=== PATIENT | male | born 1965 | race Caucasian/White ===

== ENCOUNTER 2017-07-04 18:30 | Emergency (ER) | payer MEDICAID, OTHER ==
[~2017-07-04] VITALS: Ht 185.4 cm; Wt 168.2 kg
[2017-07-04] MEDS ORDERED: aspirin 81mg tab.chew PO ONE (18:55)
[2017-07-04] MEDS ORDERED: metoprolol tartrate 50mg tablet PO ONE (19:10)
[2017-07-04 19:26] LABS: BASOPHILS % (AUTO) 0.2 % (0-1); EOSINOPHILS # (AUTO) 0.1 X10'3 (0-0.9); EOSINOPHILS % (AUTO) 1.1 % (0-6); HEMATOCRIT 45.6 % (42.0-52.0); HEMOGLOBIN 15.4 g/dl (14.0-17.9); LYMPHOCYTES # (AUTO) 1.9 X10'3 (1.1-4.8); LYMPHOCYTES % (AUTO) 15.7 % (21-51); MEAN CORPUSCULAR HEMOGLOBIN 27.6 PG (27.0-31.0); MEAN CORPUSCULAR HGB CONC 33.6 % (33.0-36.5); MEAN CORPUSCULAR VOLUME 82.1 FL (78-98); MEAN PLATELET VOLUME 7.7 FL (7.4-10.4); MONOCYTES # (AUTO) 0.7 X10'3 (0-0.9); MONOCYTES % (AUTO) 5.7 % (2-12); NEUTROPHILS # (AUTO) 9.4 X10'3 (1.8-7.7); NEUTROPHILS % (AUTO) 77.3 % (42-75); PLATELET COUNT 312 X10'3 (140-440); RED BLOOD COUNT 5.56 X10'6 (4.70-6.10); RED CELL DISTRIBUTION WIDTH 14.7 % (11.5-14.5); WHITE BLOOD COUNT 12.1 X10'3 (4.5-11.0)
[2017-07-04 19:34] VITALS: BP 201/135
[2017-07-04 19:47] LABS: ALANINE AMINOTRANSFERASE 39 U/L (12-78); ALBUMIN 3.8 G/DL (3.4-5.0); ALKALINE PHOSPHATASE 106 IU/L (46-116); ANION GAP 10 (8-16); ASPARTATE AMINO TRANSFERASE 21 U/L (10-37); BILIRUBIN,TOTAL 0.6 MG/DL (0.1-1.0); BLOOD UREA NITROGEN 19 MG/DL (7-18); BUN/CREATININE RATIO 14.4 (5.4-32.0); CALCIUM 9.1 MG/DL (8.5-10.1); CHLORIDE 106 MMOL/L (99-107); CREATININE 1.32 MG/DL (0.60-1.10); GLUCOSE 119 MG/DL (70-104); MAGNESIUM 1.7 MG/DL (1.5-2.4); POTASSIUM 3.3 MMOL/L (3.5-5.1); SODIUM 141 MMOL/L (135-145); TOTAL CARBON DIOXIDE 24.7 MMOL/L (24-32); TOTAL PROTEIN 7.8 G/DL (6.4-8.2); eGFR 57 ML/MIN
[2017-07-04] MEDS ORDERED: potassium Cl 20 mEq SR tablet PO STA (20:09)
[2017-07-04] MEDS ORDERED: furosemide 10 MG/1 ML 10ml inj IV ONE (20:10)
[2017-07-04] MEDS ORDERED: POTA20TA19 PO (20:12)
[2017-07-04] MEDS ORDERED: FURO80TA87 PO (20:12)
== END 2017-07-04 20:37 ==
LOC: ER 18:32 → EEVIPCON 18:32 → ER 20:37
DX: I11.0 Hypertensive heart disease with heart failure (principal); I50.9 Heart failure, unspecified; E87.5 Hyperkalemia; E78.00 Pure hypercholesterolemia, unspecified; F17.200 Nicotine dependence, unspecified, uncomplicated; Z88.6 Allergy status to analgesic agent
CPT/HCPCS: 36415; 71045; 80053; 83735; 83880; 84484; 85025; 93005; 96374; 99285; J1940

== ENCOUNTER 2018-05-05 10:26 | Day surgery (SDC) | payer MEDICAID ==
[2018-05-05] VITALS (9 sets, daily range): BP systolic 100–165; BP diastolic 54–102
[~2018-05-05] VITALS: Ht 185.4 cm; Wt 168.7 kg
[2018-05-05] MEDS ORDERED: diphenhydrAMINE 25mg capsule PO PRN (10:50)
[2018-05-05] MEDS ORDERED: sod bicarbonate 150mEq in D5W 1,150 ML IV ONE (10:50)
[2018-05-05] MEDS ORDERED: AMLO2.5T2 PO (11:02)
[2018-05-05] MEDS ORDERED: LISI40TA4 PO (11:02)
[2018-05-05] MEDS ORDERED: NABU500T2 PO (11:02)
[2018-05-05] MEDS ORDERED: GABA-532 PO (11:02)
[2018-05-05] MEDS ORDERED: IBUP-1986 PO (11:02)
[2018-05-05] MEDS ORDERED: SPIR25TA5 PO (11:02)
[2018-05-05] MEDS ORDERED: FURO80TA87 PO (11:02)
[2018-05-05] MEDS ORDERED: METO50TA16 PO (11:02)
[2018-05-05 11:08] LABS: BASOPHILS # (AUTO) 0.1 X10'3 (0-0.2); EOSINOPHILS # (AUTO) 0.3 X10'3 (0-0.9); EOSINOPHILS % (AUTO) 2.8 % (0-6); HEMATOCRIT 49.2 % (42.0-52.0); HEMOGLOBIN 16.3 g/dl (14.0-17.9); LYMPHOCYTES # (AUTO) 2.6 X10'3 (1.1-4.8); LYMPHOCYTES % (AUTO) 27.5 % (21-51); MEAN CORPUSCULAR HEMOGLOBIN 26.2 PG (27.0-31.0); MEAN CORPUSCULAR HGB CONC 33.1 % (33.0-36.5); MEAN CORPUSCULAR VOLUME 79.3 FL (78-98); MEAN PLATELET VOLUME 7.7 FL (7.4-10.4); MONOCYTES # (AUTO) 0.7 X10'3 (0-0.9); MONOCYTES % (AUTO) 7.4 % (2-12); NEUTROPHILS # (AUTO) 5.9 X10'3 (1.8-7.7); NEUTROPHILS % (AUTO) 61.3 % (42-75); PLATELET COUNT 287 X10'3 (140-440); WHITE BLOOD COUNT 9.6 X10'3 (4.5-11.0)
[2018-05-05 11:19] LABS: ALBUMIN 3.6 G/DL (3.4-5.0); ANION GAP 9 (8-16); BLOOD UREA NITROGEN 20 MG/DL (7-18); CALCIUM 8.7 MG/DL (8.5-10.1); CHLORIDE 103 MMOL/L (99-107); CREATININE 1.25 MG/DL (0.60-1.10); GLUCOSE 109 MG/DL (70-104); MAGNESIUM 1.9 MG/DL (1.5-2.4); POTASSIUM 4.3 MMOL/L (3.5-5.1); SODIUM 139 MMOL/L (135-145); TOTAL CARBON DIOXIDE 26.9 MMOL/L (24-32); eGFR 60 ML/MIN
[2018-05-05 11:22] LABS: PROTHROMBIN TIME 10.4 SECONDS (9.0-12.0)
[2018-05-05] MEDS ORDERED: verapamil 2.5 mg/ml inj IV ONE (11:24)
[2018-05-05] MEDS ORDERED: nitroGLYCERIN-Tridil 50MG/D5W 250 ML IV ONE (11:24)
[2018-05-05] MEDS ORDERED: iohexol 350 MG/ML 50ML vial IV ONE (11:25)
[2018-05-05] MEDS ORDERED: heparin 1,000unit/ml 10ml vial 10 ML ONE (11:25)
[2018-05-05] MEDS ORDERED: LIDOcaine 1% (10mg/ml)w/preservative injection 20ml MDV ONE (11:25)
[2018-05-05] MEDS ORDERED: iohexol 350MG/ML 100ml bottle IV ONE (11:25)
[2018-05-05] MEDS ORDERED: midazolam 2 mg/2 ml injection ONE ×2 (11:25→12:06)
[2018-05-05] MEDS ORDERED: fentaNYL/PF 50MCG/1 ML 2ML syringe ONE (11:25)
[2018-05-05] MEDS ORDERED: hydrALAZINE 20mg/ml inj. IV ONE (12:11)
== END 2018-05-05 15:45 | disposition home or self-care (01) ==
LOC: SSTAY O 10:26
PROVIDERS: ATTEND Internal Medicine Cardiovascular Disease
DX: I34.0 Nonrheumatic mitral (valve) insufficiency (principal); R94.39 Abnormal result of other cardiovascular function study; I42.8 Other cardiomyopathies; I11.0 Hypertensive heart disease with heart failure; I50.20 Unspecified systolic (congestive) heart failure; J96.01 Acute respiratory failure with hypoxia; E66.01 Morbid (severe) obesity due to excess calories; Z79.1 Long term (current) use of non-steroidal anti-inflammatories (NSAID); Z88.6 Allergy status to analgesic agent; Z68.42 Body mass index [BMI] 45.0-49.9, adult; Z79.891 Long term (current) use of opiate analgesic; Z79.899 Other long term (current) drug therapy
CPT/HCPCS: 36415; 80048; 83735; 85025; 85610; 93005; 93458; 99152; 99153; J0360; J1644; J2001; J2250; J3010; Q9967; A4620; C1769; C1894; J3490

== ENCOUNTER 2019-04-25 14:37 | Inpatient (IN) | payer MEDICAID ==
[~2019-04-25] VITALS: Ht 185.4 cm; Wt 169.4 kg
[~2019-04-25 14:37] MED LIST: AMLO2.5T2 PO; FURO80TA87 PO; GABA-532 PO; IBUP-1986 PO; LISI40TA4 PO; METO50TA16 PO; NABU500T2 PO; SPIR25TA5 PO
[2019-04-25] MEDS ORDERED: normal saline 1000ML IV soln IVB ONE (15:10)
[2019-04-25] MEDS ORDERED: ondansetron/PF 4mg/2ml inj IV ONE (15:10)
[2019-04-25] MEDS ORDERED: morphine 4 MG/ML inj SYRINge IV PRN (15:10)
[2019-04-25 15:37] LABS: BASOPHILS # (AUTO) 0.1 X10'3 (0-0.2); BASOPHILS % (AUTO) 0.6 % (0-1); EOSINOPHILS % (AUTO) 0.2 % (0-6); HEMOGLOBIN 16.8 g/dl (14.0-17.9); LYMPHOCYTES # (AUTO) 1.3 X10'3 (1.1-4.8); MEAN CORPUSCULAR HEMOGLOBIN 27.1 PG (27.0-31.0); MEAN CORPUSCULAR VOLUME 82.2 FL (78-98); MEAN PLATELET VOLUME 7.9 FL (7.4-10.4); MONOCYTES # (AUTO) 0.8 X10'3 (0-0.9); MONOCYTES % (AUTO) 6.3 % (2-12); NEUTROPHILS # (AUTO) 10.8 X10'3 (1.8-7.7); NEUTROPHILS % (AUTO) 82.9 % (42-75); PLATELET COUNT 266 X10'3 (140-440); RED BLOOD COUNT 6.21 X10'6 (4.70-6.10); RED CELL DISTRIBUTION WIDTH 14.6 % (11.5-14.5); WHITE BLOOD COUNT 13.1 X10'3 (4.5-11.0)
[2019-04-25 15:49] LABS: ALANINE AMINOTRANSFERASE 23 U/L (12-78); ALBUMIN 4.2 G/DL (3.4-5.0); ALKALINE PHOSPHATASE 121 IU/L (46-116); ANION GAP 13 (8-16); ASPARTATE AMINO TRANSFERASE 14 U/L (10-37); BILIRUBIN,TOTAL 0.6 MG/DL (0.1-1.0); BLOOD UREA NITROGEN 25 MG/DL (7-18); BUN/CREATININE RATIO 17.7 (5.4-32.0); CHLORIDE 102 MMOL/L (99-107); CREATININE 1.41 MG/DL (0.60-1.10); GLUCOSE 144 MG/DL (70-104); POTASSIUM 3.2 MMOL/L (3.5-5.1); SODIUM 141 MMOL/L (135-145); TOTAL CARBON DIOXIDE 26.2 MMOL/L (24-32); TOTAL PROTEIN 8.6 G/DL (6.4-8.2); eGFR 52 ML/MIN
[2019-04-25 15:53] LABS: LIPASE 569 U/L (73-393); TROPONIN I < 0.04 NG/ML (0.0-0.05)
[2019-04-25] MEDS ORDERED: bisacodyl 10mg suppository rectal RC STA (16:13)
[2019-04-25] MEDS ORDERED: magnesium citrate 296ml oral solution PO ONE (16:15)
[2019-04-25] MEDS ORDERED: magnesium 2GM in 50ml NS 50 ML IV ONE ×2 (17:05→19:05)
[2019-04-25] MEDS ORDERED: diltiazem 5mg/ml 5ml inj. IV ONE (17:05)
[2019-04-25] MEDS ORDERED: potassium Cl 20 mEq SR tablet PO ONE (17:05)
[2019-04-25] MEDS ORDERED: diltiazem-D5W 125mg/125ml 125 ML IV SCH (17:10)
[2019-04-25] MEDS ORDERED: diltiazem-NS 100mg/100ml 100 ML IV SCH (17:15)
[2019-04-25 17:32] LABS: CLARITY,URINE CLEAR (Clear); COLOR,URINE YELLOW (Yellow); GLUCOSE, URINE 100 mg/dl (Neg); KETONES,URINE NEGATIVE (Neg); LEUKOCYTE ESTERASE ,URINE NEGATIVE (Neg); NITRITES, URINE NEGATIVE (Neg); OCCULT BLOOD,URINE SMALL (Neg); PROTEIN,URINE 30 mg/dl (Neg); UROBILINOGEN,URINE 0.2 E.U/dL (0.2-1.0)
[2019-04-25 17:33] LABS: UA COLLECTION TYPE CLN CATCH MIDSTREAM
[2019-04-25 17:37] LABS: BACTERIA,URINE NONE SEEN /HPF (Neg); MUCUS STRANDS NONE SEEN /LPF (Neg); RBC,URINE 0-2 /HPF (0-2); SQUAMOUS EPITHELIAL CELL,UR NONE SEEN /LPF (FEW); WBC,URINE NONE SEEN /HPF (0-4)
[2019-04-25 17:44] LABS: PARTIAL THROMBOPLASTIN TIME 29 SECONDS (22-32)
--- NOTE | 2019-04-25 17:53 | NUR ---
dr rogers at bedside
[2019-04-25] MEDS ORDERED: dronabinol 2.5mg capsule PO STA (17:59)
[2019-04-25] MEDS ORDERED: aspirin 81mg tab.chew PO ONE (18:00)
[2019-04-25] MEDS ORDERED: dronabinol 2.5mg capsule PO PRN (18:05)
[2019-04-25] MEDS ORDERED: metoprolol tartrate 50mg tablet PO STA (18:08)
[2019-04-25 18:14] LABS: MAGNESIUM 1.9 MG/DL (1.5-2.4)
[2019-04-25 18:15] LABS: D-DIMER 1.68 MG/L FEU (0-0.50)
[2019-04-25] MEDS ORDERED: mag hydrox/Alum hydrox/simeth 30ml oral suspension PO PRN (18:15)
[2019-04-25] MEDS ORDERED: ondansetron/PF 4mg/2ml inj IV PRN (18:15)
[2019-04-25] MEDS ORDERED: magnesium 4gm in 100ml NS 100 ML IV PRN (18:15)
[2019-04-25] MEDS ORDERED: ipratropium/albuterol 3ml nebule NEB PRN (18:15)
[2019-04-25] MEDS ORDERED: acetaminophen 325mg tablet PO PRN (18:15)
[2019-04-25] MEDS ORDERED: potassium CL 10mEq/100ml bag 100 ML IV PRN ×2 (18:15)
[2019-04-25] MEDS ORDERED: potassium Cl 20 mEq SR tablet PO PRN ×2 (18:15)
[2019-04-25] MEDS ORDERED: magnesium 2GM in 50ml NS 50 ML IV PRN (18:15)
[2019-04-25] MEDS ORDERED: magnesium hydroxide 30ml (MOM) UD suspension PO PRN (18:15)
[2019-04-25] MEDS: methylnaltrexone br 12mg/0.6ml inj***SubQ only SQ SCH (18:34)
[2019-04-25] MEDS ORDERED: hydrALAZINE 20mg/ml inj. IV PRN (18:35)
--- NOTE | 2019-04-25 18:49 | NUR ---
PAGED DR RAMOS
--- NOTE | 2019-04-25 18:59 | NUR ---
SPOKE TO DR RAMOS ON PHONE: MANY TELEPHONE ORDERS RECEIVED, SEE ORDERS
[2019-04-25] MEDS ORDERED: potassium Cl 20 mEq SR tablet PO STA (19:00)
--- NOTE | 2019-04-25 19:20 | NUR ---
SPOKE TO PHARMACIST MAGED REGARDING DOSAGE FOR PE FOR ELIQUIS: DOSAGE FOR PE IS 10 MG BID FOR ONE WEEK THEN 5 MG BID ONGOING PHARMACIST WILL ORDER POTASSIUM REPLACEMENT TO 4.0 AND MAGNESIUM REPLACEMENT TO 2.0 ORDERED VQ SCAN, ULTRASOUND OF LEGS, DC'D SCDS, LIPASE IN AM AND NOW DOSES OF MAGNESIUM AND POTASSIUM
[2019-04-25] MEDS: K and/or MAG REPLACEMENT MC SCH (20:00)
--- NOTE | 2019-04-25 20:00 | NUR ---
CRUZ [phone]; CAN NOT FIND HIS BAG OF MEDICATIONS AT HOME AND PATIENT CAN NOT REMEMBER HIS MEDICATIONS, UNABLE TO COMPLETE MEDICATION RECONCILIATION ATTEMPTED TO CALL REPORT RN AND BENEFIT AUTHORIZER UNAVAILABLE
--- NOTE | 2019-04-25 20:18 | NUR ---
HEADER SETUP OPERATOR BOBBY AWARE THAT MAG CITRATE AND DUCOLAX SUPPOSITORY NOT GIVEN DUE TO ROOM IS TOO SMALL FOR A COMMODE AND PATIENT IS TOO FAR FROM THE BATHROOM
[2019-04-25] MEDS: apixaban 5mg tablet PO SCH (20:34)
[2019-04-25] MEDS: metoprolol tartrate 50mg tablet PO SCH (20:34)
[2019-04-25] MEDS: furosemide 10 MG/1 ML 10ml inj IV SCH (20:34)
[2019-04-25 21:00] VITALS: BP 135/103
--- NOTE | 2019-04-25 21:00 | NUR ---
pt arrived to the PCU Unit from the ER via a gurney. pt ambulated from gurney to the hospital bed. pt is alert and oriented x4, on a cardizem GTT running at 5. will continue to monitor pt
[2019-04-25] MEDS: diltiazem-NS 100mg/100ml 100 ML IV SCH (21:01)
[2019-04-25 22:00] VITALS: BP 136/109
[2019-04-25 23:00] VITALS: BP 141/105
[2019-04-26] VITALS (9 sets, daily range): BP systolic 111–150; BP diastolic 52–124
[2019-04-26] MEDS: diltiazem-NS 100mg/100ml 100 ML IV SCH (02:36)
[2019-04-26 06:14] LABS: BASOPHILS % (AUTO) 0.3 % (0-1); EOSINOPHILS % (AUTO) 0.3 % (0-6); HEMATOCRIT 46.3 % (42.0-52.0); HEMOGLOBIN 15.4 g/dl (14.0-17.9); LYMPHOCYTES # (AUTO) 2.5 X10'3 (1.1-4.8); LYMPHOCYTES % (AUTO) 20.5 % (21-51); MEAN CORPUSCULAR HEMOGLOBIN 27.6 PG (27.0-31.0); MEAN CORPUSCULAR HGB CONC 33.3 g/dL (33.0-36.5); MEAN CORPUSCULAR VOLUME 82.8 FL (78-98); MEAN PLATELET VOLUME 8.3 FL (7.4-10.4); MONOCYTES # (AUTO) 0.9 X10'3 (0-0.9); MONOCYTES % (AUTO) 7.2 % (2-12); NEUTROPHILS # (AUTO) 8.8 X10'3 (1.8-7.7); NEUTROPHILS % (AUTO) 71.7 % (42-75); PLATELET COUNT 258 X10'3 (140-440); RED BLOOD COUNT 5.59 X10'6 (4.70-6.10); RED CELL DISTRIBUTION WIDTH 14.7 % (11.5-14.5); WHITE BLOOD COUNT 12.3 X10'3 (4.5-11.0)
--- NOTE | 2019-04-26 06:20 | NUR ---
Problems reprioritized. Patient report given, questions answered & plan of care reviewed with Regina LEGGETT.
--- NOTE | 2019-04-26 06:30 | NUR ---
Patient in room PCU 3017. I have received report from Karen LEGGETT and had the opportunity to ask questions and assume patient care. Patient asleep in bed and resting comfortably. In no acute distress. Will continue to monitor.
[2019-04-26 06:31] LABS: ALANINE AMINOTRANSFERASE 24 U/L (12-78); ALBUMIN 3.5 G/DL (3.4-5.0); ALBUMIN/GLOBULIN RATIO 0.9 (1.1-1.5); ALKALINE PHOSPHATASE 106 IU/L (46-116); ANION GAP 9 (8-16); ASPARTATE AMINO TRANSFERASE 13 U/L (10-37); BILIRUBIN,TOTAL 0.6 MG/DL (0.1-1.0); BLOOD UREA NITROGEN 17 MG/DL (7-18); BUN/CREATININE RATIO 14.4 (5.4-32.0); CALCIUM 8.6 MG/DL (8.5-10.1); CHLORIDE 104 MMOL/L (99-107); CREATININE 1.18 MG/DL (0.60-1.10); GLUCOSE 106 MG/DL (70-104); POTASSIUM 3.9 MMOL/L (3.5-5.1); SODIUM 141 MMOL/L (135-145); TOTAL PROTEIN 7.6 G/DL (6.4-8.2); eGFR 64 ML/MIN
[2019-04-26 06:34] LABS: CHOL/HDL RATIO 3.7 (0.00-4.99); CHOLESTEROL 150 MG/DL (0-200); HDL CHOLESTEROL 41 MG/DL (35-60); LDL CHOLESTEROL 95 MG/DL (50-100); LIPASE 1246 U/L (73-393); MAGNESIUM 2.5 MG/DL (1.5-2.4); TRIGLYCERIDES 85 MG/DL (20-135)
[2019-04-26] MEDS ORDERED: BUPR1FIL5 SL (06:55)
[2019-04-26] MEDS ORDERED: METO100T14 PO (07:01)
[2019-04-26] MEDS ORDERED: LEVO50TA8 PO (07:01)
[2019-04-26] MEDS: apixaban 5mg tablet PO SCH ×2 (07:49→19:54)
[2019-04-26] MEDS: furosemide 10 MG/1 ML 10ml inj IV SCH ×2 (07:49→19:54)
[2019-04-26] MEDS: metoprolol tartrate 50mg tablet PO SCH ×2 (07:50→19:54)
[2019-04-26] MEDS: K and/or MAG REPLACEMENT MC SCH ×2 (08:00→19:08)
--- NOTE | 2019-04-26 11:04 | NUR ---
Paged Dr. Owusu: PAGER ID: [phone] MESSAGE: RE: Dalton Nettles [phone]. Pharmacy only has 8mg of suboxone in stock. Please advise what you would like ordered.. Thank you. Regina [phone]
--- NOTE | 2019-04-26 11:09 | NUR ---
New order from Dr. Owusu: Discontinue IV morphine. Suboxone 8 mg BID.
[2019-04-26] MEDS ORDERED: digoxin 250mcg/ml 2ml ampule IV ONE (11:50)
[2019-04-26] MEDS: buprenorphine/naloxone 8MG-2MG SUBlingual film SL SCH ×2 (12:28→19:54)
[2019-04-26] MEDS: dronabinol 2.5mg capsule PO PRN (13:28)
--- NOTE | 2019-04-26 16:42 | NUR ---
New order from Dr. Owusu: Bilateral lower extremity venous ultrasound
--- NOTE | 2019-04-26 17:54 | NUR ---
PAGER ID: [phone] MESSAGE: RE: Dalton Nettles [id number]. Is OK to order heart healthy diet or still clear liquid? Regina [phone]
--- NOTE | 2019-04-26 18:27 | NUR ---
Patient in room PCU 3017. I have received report from Regina LEGGETT and had the opportunity to ask questions and assume patient care.
--- NOTE | 2019-04-26 18:48 | NUR ---
Problems reprioritized. Patient report given, questions answered & plan of care reviewed with Marilia LEGGETT. Patient stable at transfer of care.
[2019-04-27 02:00] VITALS: BP 144/96
[2019-04-27 06:15] LABS: BASOPHILS # (AUTO) 0.1 X10'3 (0-0.2); EOSINOPHILS # (AUTO) 0.2 X10'3 (0-0.9); EOSINOPHILS % (AUTO) 2.8 % (0-6); HEMATOCRIT 41.5 % (42.0-52.0); HEMOGLOBIN 14.2 g/dl (14.0-17.9); LYMPHOCYTES # (AUTO) 2.4 X10'3 (1.1-4.8); MEAN CORPUSCULAR HEMOGLOBIN 28.3 PG (27.0-31.0); MEAN CORPUSCULAR HGB CONC 34.2 g/dL (33.0-36.5); MEAN CORPUSCULAR VOLUME 82.6 FL (78-98); MEAN PLATELET VOLUME 8.2 FL (7.4-10.4); MONOCYTES # (AUTO) 0.7 X10'3 (0-0.9); MONOCYTES % (AUTO) 9.6 % (2-12); NEUTROPHILS # (AUTO) 4.3 X10'3 (1.8-7.7); NEUTROPHILS % (AUTO) 55.6 % (42-75); PLATELET COUNT 229 X10'3 (140-440); RED BLOOD COUNT 5.03 X10'6 (4.70-6.10); RED CELL DISTRIBUTION WIDTH 14.5 % (11.5-14.5); WHITE BLOOD COUNT 7.8 X10'3 (4.5-11.0)
--- NOTE | 2019-04-27 06:16 | NUR ---
Problems reprioritized. Patient report given, questions answered & plan of care reviewed with Regina LEGGETT.
--- NOTE | 2019-04-27 06:20 | NUR ---
Patient in room PCU 3017. I have received report from Marilia LEGGETT and had the opportunity to ask questions and assume patient care. Patient asleep in bed and resting comfortably. In no acute distress.
[2019-04-27 06:42] LABS: ALANINE AMINOTRANSFERASE 20 U/L (12-78); ALBUMIN 3.2 G/DL (3.4-5.0); ALBUMIN/GLOBULIN RATIO 0.9 (1.1-1.5); ALKALINE PHOSPHATASE 94 IU/L (46-116); ANION GAP 8 (8-16); ASPARTATE AMINO TRANSFERASE 17 U/L (10-37); BILIRUBIN,TOTAL 0.4 MG/DL (0.1-1.0); BLOOD UREA NITROGEN 21 MG/DL (7-18); BUN/CREATININE RATIO 17.4 (5.4-32.0); CALCIUM 8.4 MG/DL (8.5-10.1); CHLORIDE 104 MMOL/L (99-107); CREATININE 1.21 MG/DL (0.60-1.10); GLUCOSE 101 MG/DL (70-104); LIPASE 317 U/L (73-393); MAGNESIUM 2.2 MG/DL (1.5-2.4); SODIUM 140 MMOL/L (135-145); TOTAL CARBON DIOXIDE 28.5 MMOL/L (24-32); TOTAL PROTEIN 6.7 G/DL (6.4-8.2); eGFR 62 ML/MIN
[2019-04-27 06:46] LABS: POTASSIUM 3.9 MMOL/L (3.5-5.1)
[2019-04-27 07:00] VITALS: BP 152/73
[2019-04-27] MEDS ORDERED: digoxin 250mcg (0.25mg) tablet PO SCH (08:00)
[2019-04-27] MEDS: K and/or MAG REPLACEMENT MC SCH (08:00)
[2019-04-27] MEDS: methylnaltrexone br 12mg/0.6ml inj***SubQ only SQ SCH (08:00)
[2019-04-27] MEDS: furosemide 10 MG/1 ML 10ml inj IV SCH (08:23)
[2019-04-27] MEDS: metoprolol tartrate 50mg tablet PO SCH (08:24)
[2019-04-27] MEDS: apixaban 5mg tablet PO SCH (08:24)
[2019-04-27] MEDS: buprenorphine/naloxone 8MG-2MG SUBlingual film SL SCH (08:24)
[2019-04-27] MEDS: dronabinol 2.5mg capsule PO PRN (08:54)
[2019-04-27] MEDS ORDERED: APIX5TAB3 PO (10:37)
[2019-04-27 11:00] VITALS: BP 130/98
--- NOTE | 2019-04-27 12:57 | NUR ---
Patient stable for discharge per MD orders. All discharge instructions reviewed with patient and all questions answered. New prescription sent electronically to [facility]. Patient educated on signs and symptoms of bleeding. Patient to follow up with Dr. Bai in 2 weeks. PIV discontinued - cannula intact. Telemetry monitoring discontinued. All patient belongings packed up and sent with patient in private vehicle to home. Patient walked to [facility], accompanied by primary RN.
[2019-05-02] MEDS ORDERED: apixaban 5mg tablet PO SCH (09:00)
== END 2019-04-27 12:57 | disposition home or self-care (01) | DRG 201 ==
LOC: ER 14:37 → ED HOLD 18:20 → EDBEDREQ 18:54 → PCU 3S 20:50
PROVIDERS: ADMIT Family Medicine; ATTEND Family Medicine
DX: I48.91 Unspecified atrial fibrillation (principal); I13.0 Hypertensive heart and chronic kidney disease with heart failure and stage 1 through stage 4 chronic kidney disease, or unspecified chronic kidney disease; I50.22 Chronic systolic (congestive) heart failure; I49.9 Cardiac arrhythmia, unspecified; K59.00 Constipation, unspecified; E78.00 Pure hypercholesterolemia, unspecified; G89.29 Other chronic pain; M54.5 Low back pain; F17.210 Nicotine dependence, cigarettes, uncomplicated; E78.5 Hyperlipidemia, unspecified; N18.9 Chronic kidney disease, unspecified; E87.6 Hypokalemia; F11.90 Opioid use, unspecified, uncomplicated; F12.90 Cannabis use, unspecified, uncomplicated; Z88.8 Allergy status to other drugs, medicaments and biological substances; Z79.01 Long term (current) use of anticoagulants; Z79.899 Other long term (current) drug therapy
CPT/HCPCS: 36415; 74018; 78582; 80053; 80061; 81001; 83605; 83690; 83735; 83880; 84484; 85025; 85379; 85610; 85730; 87081; 93306; 93970; 94760; 97116; 97161; 97530; A9539; A9540; G0378; J1160; J1940; J2212; J2270; J2405; J3475; J3490; Q0167

== ENCOUNTER 2019-06-01 08:55 | Inpatient (IN) | payer MEDICAID ==
[~2019-06-01] VITALS: Ht 185.4 cm; Wt 180.4 kg
[~2019-06-01 08:55] MED LIST changes: -AMLO2.5T2 PO; +APIX5TAB3 PO; +BUPR1FIL5 SL; -GABA-532 PO; -IBUP-1986 PO; +LEVO50TA8 PO; +METO100T14 PO; -METO50TA16 PO; -NABU500T2 PO
[2019-06-01 10:59] LABS: BASOPHILS # (AUTO) 0.1 X10'3 (0-0.2); BASOPHILS % (AUTO) 0.6 % (0-1); EOSINOPHILS % (AUTO) 0.1 % (0-6); HEMATOCRIT 42.6 % (42.0-52.0); HEMOGLOBIN 14.1 g/dl (14.0-17.9); LYMPHOCYTES # (AUTO) 1.4 X10'3 (1.1-4.8); LYMPHOCYTES % (AUTO) 10.2 % (21-51); MEAN CORPUSCULAR HEMOGLOBIN 27.2 PG (27.0-31.0); MEAN CORPUSCULAR HGB CONC 33.2 g/dL (33.0-36.5); MONOCYTES % (AUTO) 7.4 % (2-12); NEUTROPHILS # (AUTO) 11.3 X10'3 (1.8-7.7); NEUTROPHILS % (AUTO) 81.7 % (42-75); PLATELET COUNT 275 X10'3 (140-440); RED CELL DISTRIBUTION WIDTH 14.5 % (11.5-14.5); WHITE BLOOD COUNT 13.8 X10'3 (4.5-11.0)
[2019-06-01 11:15] LABS: ALANINE AMINOTRANSFERASE 23 U/L (12-78); ALBUMIN 3.5 G/DL (3.4-5.0); ALBUMIN/GLOBULIN RATIO 0.8 (1.1-1.5); ALKALINE PHOSPHATASE 97 IU/L (46-116); ANION GAP 10 (8-16); ASPARTATE AMINO TRANSFERASE 16 U/L (10-37); BILIRUBIN,TOTAL 1.6 MG/DL (0.1-1.0); BLOOD UREA NITROGEN 13 MG/DL (7-18); CALCIUM 9.3 MG/DL (8.5-10.1); CHLORIDE 103 MMOL/L (99-107); CREATININE 1.18 MG/DL (0.60-1.10); GLUCOSE 147 MG/DL (70-104); POTASSIUM 3.2 MMOL/L (3.5-5.1); SODIUM 140 MMOL/L (135-145); TOTAL CARBON DIOXIDE 27.3 MMOL/L (24-32); TOTAL PROTEIN 7.7 G/DL (6.4-8.2); eGFR 64 ML/MIN
[2019-06-01 11:23] LABS: MAGNESIUM 1.7 MG/DL (1.5-2.4)
[2019-06-01] MEDS ORDERED: ipratropium/albuterol 3ml nebule NEB ONE (12:05)
[2019-06-01] MEDS ORDERED: furosemide 40mg/4ml inj IV ONE (12:05)
[2019-06-01] MEDS ORDERED: diltiazem 5mg/ml 5ml inj. IV ONE (12:10)
[2019-06-01] MEDS ORDERED: FURO80TA3 PO (12:46)
[2019-06-01] MEDS ORDERED: POTA8CAP20 PO (12:46)
[2019-06-01] MEDS ORDERED: ALBU18HF2 IH (12:46)
[2019-06-01] MEDS ORDERED: AMLO10TA13 PO (12:46)
[2019-06-01] MEDS ORDERED: ONDA4TAB12 PO (12:46)
[2019-06-01] MEDS ORDERED: DOCU-267 PO (12:46)
[2019-06-01] MEDS ORDERED: APIX5TAB3 PO (12:51)
[2019-06-01] MEDS ORDERED: diltiazem-D5W 125mg/125ml 125 ML IV PRN (13:02)
[2019-06-01] MEDS: diltiazem-NS 100mg/100ml 100 ML IV PRN ×2 (13:34→20:53)
[2019-06-01] MEDS ORDERED: acetaminophen 325mg tablet PO PRN ×2 (13:35)
[2019-06-01] MEDS ORDERED: magnesium 2GM in 50ml NS 50 ML IV PRN (13:35)
[2019-06-01] MEDS ORDERED: ondansetron/PF 4mg/2ml inj IV PRN (13:35)
[2019-06-01] MEDS ORDERED: potassium CL 10mEq/100ml bag 100 ML IV PRN ×2 (13:35)
[2019-06-01] MEDS ORDERED: ipratropium/albuterol 3ml nebule NEB PRN ×2 (13:35)
[2019-06-01] MEDS ORDERED: magnesium 4gm in 100ml NS 100 ML IV PRN (13:35)
[2019-06-01] MEDS ORDERED: magnesium Cl slow-release 64mg tablet PO PRN (13:35)
[2019-06-01] MEDS ORDERED: mag hydrox/Alum hydrox/simeth 30ml oral suspension PO PRN (13:35)
[2019-06-01] MEDS ORDERED: potassium Cl 20 mEq SR tablet PO PRN (13:35)
--- NOTE | 2019-06-01 14:15 | NUR ---
DILT DRIP INCREASED TO 10
[2019-06-01] MEDS ORDERED: ibuprofen tablet 400 MG TABLET PO ONE (14:55)
--- NOTE | 2019-06-01 16:14 | NUR ---
INCREASED DILT TO 15
--- NOTE | 2019-06-01 17:47 | NUR ---
Patient coming to RM 308. I have received report from OLEKSANDR Lozano and had the opportunity to ask questions and assume patient care.
--- NOTE | 2019-06-01 18:11 | NUR ---
Problems reprioritized. Patient report given, questions answered & plan of care reviewed with OLEKSANDR Silva.
--- NOTE | 2019-06-01 18:11 | NUR ---
Patient in room MED 308. I have received report from OLEKSANDR Rea and had the opportunity to ask questions and assume patient care.
[2019-06-01] MEDS ORDERED: docusate sod 100mg capsule PO PRN (19:30)
[2019-06-01] MEDS: K and/or MAG REPLACEMENT MC SCH (20:00)
[2019-06-01] MEDS: apixaban 5mg tablet PO SCH (20:12)
[2019-06-01] MEDS: metoprolol tartrate 50mg tablet PO SCH (20:13)
[2019-06-01] MEDS: furosemide 40mg/4ml inj IV SCH (20:14)
--- NOTE | 2019-06-01 20:36 | NUR ---
Paged Dr. Bee PAGER ID: [phone] MESSAGE: Nettles Dalton in room # 308 came from ER on Cardizem drip @ 15mls/hr; however, order in [facility] is Cardizem at 5 mls/hr. Pt's VS: Temp=97.7; BP 134/86; RR 26; SPO2: 94; HR: 98 Marianne
[2019-06-01] MEDS: potassium Cl 20 mEq SR tablet PO PRN (21:31)
[2019-06-01] MEDS: temazepam 15mg capsule PO PRN (21:31)
[2019-06-02] VITALS (10 sets, daily range): BP systolic 104–146; BP diastolic 74–104
--- NOTE | 2019-06-02 00:21 | NUR ---
Paged Dr. Guzman PAGER ID: [phone] MESSAGE: Dalton Nettles in room 308. Pt's HR is (60-90) , BP 117/90 . Cardizem is running at 15mg/hr. Can we titrate down? Pls advise Thank you- Semaj
--- NOTE | 2019-06-02 01:33 | NUR ---
DART: MRSA [id number]
--- NOTE | 2019-06-02 02:50 | NUR ---
MD Notified Patient heart rate between 60 and 100. Bp 146/104. Cardizem running at 15mg/Hr. received orders to titrate to 10mg/hr.
[2019-06-02] MEDS: diltiazem-NS 100mg/100ml 100 ML IV PRN (04:02)
[2019-06-02] MEDS: HYDROcodone/acetaminophen 5mg/325mg tablet PO PRN ×4 (04:33→21:15)
[2019-06-02 06:07] LABS: BASOPHILS # (AUTO) 0.1 X10'3 (0-0.2); BASOPHILS % (AUTO) 0.7 % (0-1); EOSINOPHILS # (AUTO) 0.2 X10'3 (0-0.9); EOSINOPHILS % (AUTO) 1.3 % (0-6); HEMATOCRIT 41.3 % (42.0-52.0); HEMOGLOBIN 13.4 g/dl (14.0-17.9); LYMPHOCYTES # (AUTO) 1.8 X10'3 (1.1-4.8); LYMPHOCYTES % (AUTO) 13.7 % (21-51); MEAN CORPUSCULAR HEMOGLOBIN 27.1 PG (27.0-31.0); MEAN CORPUSCULAR HGB CONC 32.5 g/dL (33.0-36.5); MEAN CORPUSCULAR VOLUME 83.5 FL (78-98); MEAN PLATELET VOLUME 8.2 FL (7.4-10.4); MONOCYTES # (AUTO) 1.2 X10'3 (0-0.9); MONOCYTES % (AUTO) 9.1 % (2-12); NEUTROPHILS # (AUTO) 9.8 X10'3 (1.8-7.7); NEUTROPHILS % (AUTO) 75.2 % (42-75); PLATELET COUNT 248 X10'3 (140-440); RED BLOOD COUNT 4.94 X10'6 (4.70-6.10); RED CELL DISTRIBUTION WIDTH 14.8 % (11.5-14.5); WHITE BLOOD COUNT 13.1 X10'3 (4.5-11.0)
[2019-06-02 06:25] LABS: ALBUMIN 3.2 G/DL (3.4-5.0); ANION GAP 10 (8-16); BLOOD UREA NITROGEN 19 MG/DL (7-18); BUN/CREATININE RATIO 13.4 (5.4-32.0); CALCIUM 8.9 MG/DL (8.5-10.1); CHLORIDE 104 MMOL/L (99-107); CREATININE 1.42 MG/DL (0.60-1.10); GLUCOSE 126 MG/DL (70-104); MAGNESIUM 1.8 MG/DL (1.5-2.4); POTASSIUM 3.3 MMOL/L (3.5-5.1); SODIUM 141 MMOL/L (135-145); TOTAL CARBON DIOXIDE 27.4 MMOL/L (24-32); eGFR 52 ML/MIN
--- NOTE | 2019-06-02 06:27 | NUR ---
Problems reprioritized. Patient report given, questions answered & plan of care reviewed with OLEKSANDR Suresh. Patient stable at shift change
--- NOTE | 2019-06-02 06:32 | NUR ---
Orientee documentation: I have reviewed and agree with interventions, assessments performed and documented by OLEKSANDR Cha.
--- NOTE | 2019-06-02 06:34 | NUR ---
Patient in room MED 308. I have received report from OLEKSANDR Cha and OLEKSANDR Silva and had the opportunity to ask questions and assume patient care.
[2019-06-02] MEDS: furosemide 40mg/4ml inj IV SCH ×2 (07:44→19:38)
[2019-06-02] MEDS: potassium Cl 20 mEq SR tablet PO PRN ×2 (07:45→13:16)
[2019-06-02] MEDS: levoTHYROXINE 25mcg tablet PO SCH (07:46)
[2019-06-02] MEDS: apixaban 5mg tablet PO SCH ×2 (07:46→19:36)
[2019-06-02] MEDS: lisinopril 20mg tablet PO SCH (07:47)
[2019-06-02] MEDS: metoprolol tartrate 50mg tablet PO SCH ×2 (07:48→19:38)
[2019-06-02] MEDS: amLODIPine 5mg tablet PO SCH (07:48)
[2019-06-02] MEDS ORDERED: enoxaparin 40mg/0.4ml syringe SUBCUT SCH (08:00)
[2019-06-02] MEDS: K and/or MAG REPLACEMENT MC SCH ×2 (08:00→20:00)
--- NOTE | 2019-06-02 18:31 | NUR ---
Problems reprioritized. Patient report given, questions answered & plan of care reviewed with OLEKSANDR East.
--- NOTE | 2019-06-02 18:42 | NUR ---
Problems reprioritized. Patient report given, questions answered & plan of care reviewed with Gill LEGGETT .
--- NOTE | 2019-06-02 20:51 | NUR ---
Dr. Sanchez called with orders to d/c cardizem gtt and lovenox.
[2019-06-02] MEDS: temazepam 15mg capsule PO PRN (21:15)
[2019-06-02] MEDS: amox tr/potassium clavulanate 500mg/125mg TAB PO SCH (22:36)
[2019-06-03 02:00] VITALS: BP 117/65
[2019-06-03] MEDS: HYDROcodone/acetaminophen 5mg/325mg tablet PO PRN ×4 (02:37→20:35)
[2019-06-03 06:00] VITALS: BP 142/92
--- NOTE | 2019-06-03 06:00 | NUR ---
Patient in room MED 308. I have received report from OLEKSANDR Dna and had the opportunity to ask questions and assume patient care.
[2019-06-03 06:12] LABS: BASOPHILS # (AUTO) 0.1 X10'3 (0-0.2); BASOPHILS % (AUTO) 1.2 % (0-1); EOSINOPHILS # (AUTO) 0.4 X10'3 (0-0.9); EOSINOPHILS % (AUTO) 3.7 % (0-6); HEMATOCRIT 39.6 % (42.0-52.0); LYMPHOCYTES # (AUTO) 2.1 X10'3 (1.1-4.8); LYMPHOCYTES % (AUTO) 19.4 % (21-51); MEAN CORPUSCULAR HEMOGLOBIN 27.3 PG (27.0-31.0); MEAN CORPUSCULAR HGB CONC 32.8 g/dL (33.0-36.5); MEAN CORPUSCULAR VOLUME 83.3 FL (78-98); MEAN PLATELET VOLUME 8.3 FL (7.4-10.4); MONOCYTES # (AUTO) 0.9 X10'3 (0-0.9); MONOCYTES % (AUTO) 8.5 % (2-12); NEUTROPHILS # (AUTO) 7.4 X10'3 (1.8-7.7); NEUTROPHILS % (AUTO) 67.2 % (42-75); PLATELET COUNT 247 X10'3 (140-440); RED BLOOD COUNT 4.76 X10'6 (4.70-6.10); RED CELL DISTRIBUTION WIDTH 14.8 % (11.5-14.5)
[2019-06-03 06:18] LABS: ALBUMIN 2.9 G/DL (3.4-5.0); ANION GAP 9 (8-16); BLOOD UREA NITROGEN 29 MG/DL (7-18); BUN/CREATININE RATIO 20.7 (5.4-32.0); CALCIUM 8.7 MG/DL (8.5-10.1); CHLORIDE 105 MMOL/L (99-107); GLUCOSE 111 MG/DL (70-104); MAGNESIUM 1.8 MG/DL (1.5-2.4); POTASSIUM 3.4 MMOL/L (3.5-5.1); SODIUM 142 MMOL/L (135-145); eGFR 53 ML/MIN
--- NOTE | 2019-06-03 06:19 | NUR ---
Problems reprioritized. Patient report given, questions answered & plan of care reviewed with Gill LEGGETT.
[2019-06-03] MEDS: potassium Cl 20 mEq SR tablet PO PRN ×3 (07:56→20:33)
[2019-06-03] MEDS: levoTHYROXINE 25mcg tablet PO SCH (07:56)
[2019-06-03] MEDS: metoprolol tartrate 50mg tablet PO SCH ×2 (07:56→20:34)
[2019-06-03] MEDS: lisinopril 20mg tablet PO SCH (07:57)
[2019-06-03] MEDS: apixaban 5mg tablet PO SCH ×2 (07:57→20:34)
[2019-06-03] MEDS: furosemide 40mg/4ml inj IV SCH ×2 (07:57→20:33)
[2019-06-03] MEDS: K and/or MAG REPLACEMENT MC SCH ×2 (08:00→20:00)
[2019-06-03] MEDS: amLODIPine 5mg tablet PO SCH (09:58)
[2019-06-03] MEDS: amox tr/potassium clavulanate 500mg/125mg TAB PO SCH ×2 (09:58→16:30)
[2019-06-03 11:00] VITALS: BP 120/87
[2019-06-03] MEDS ORDERED: AMOX1TAB15 PO (11:34)
[2019-06-03] MEDS ORDERED: FURO80TA3 PO (11:34)
[2019-06-03 15:00] VITALS: BP 105/74
[2019-06-03 18:00] VITALS: BP 112/83
--- NOTE | 2019-06-03 18:55 | NUR ---
Problems reprioritized. Patient report given, questions answered & plan of care reviewed with OLEKSANDR White.
[2019-06-03] MEDS: temazepam 15mg capsule PO PRN (20:33)
[2019-06-03 22:00] VITALS: BP 106/89
[2019-06-04] MEDS: temazepam 15mg capsule PO PRN (01:19)
[2019-06-04] MEDS: HYDROcodone/acetaminophen 5mg/325mg tablet PO PRN ×2 (01:20→09:07)
[2019-06-04 02:00] VITALS: BP 98/68
[2019-06-04 06:00] VITALS: BP 120/88
--- NOTE | 2019-06-04 06:18 | NUR ---
Problems reprioritized. Patient report given to Magui, questions answered & plan of care reviewed with .
[2019-06-04 06:23] LABS: BASOPHILS # (AUTO) 0.1 X10'3 (0-0.2); EOSINOPHILS # (AUTO) 0.2 X10'3 (0-0.9); EOSINOPHILS % (AUTO) 2.6 % (0-6); HEMATOCRIT 37.5 % (42.0-52.0); HEMOGLOBIN 12.6 g/dl (14.0-17.9); LYMPHOCYTES # (AUTO) 1.8 X10'3 (1.1-4.8); LYMPHOCYTES % (AUTO) 19.8 % (21-51); MEAN CORPUSCULAR HEMOGLOBIN 27.9 PG (27.0-31.0); MEAN CORPUSCULAR HGB CONC 33.6 g/dL (33.0-36.5); MEAN CORPUSCULAR VOLUME 83.1 FL (78-98); MEAN PLATELET VOLUME 8.2 FL (7.4-10.4); MONOCYTES # (AUTO) 0.8 X10'3 (0-0.9); MONOCYTES % (AUTO) 8.5 % (2-12); NEUTROPHILS # (AUTO) 6.3 X10'3 (1.8-7.7); NEUTROPHILS % (AUTO) 68.1 % (42-75); PLATELET COUNT 260 X10'3 (140-440); RED BLOOD COUNT 4.51 X10'6 (4.70-6.10); RED CELL DISTRIBUTION WIDTH 14.4 % (11.5-14.5); WHITE BLOOD COUNT 9.3 X10'3 (4.5-11.0)
[2019-06-04 06:58] LABS: ALBUMIN 2.9 G/DL (3.4-5.0); ANION GAP 9 (8-16); BLOOD UREA NITROGEN 30 MG/DL (7-18); BUN/CREATININE RATIO 21.9 (5.4-32.0); CALCIUM 8.8 MG/DL (8.5-10.1); CHLORIDE 105 MMOL/L (99-107); CREATININE 1.37 MG/DL (0.60-1.10); GLUCOSE 115 MG/DL (70-104); SODIUM 144 MMOL/L (135-145); TOTAL CARBON DIOXIDE 30.1 MMOL/L (24-32); eGFR 54 ML/MIN
[2019-06-04 07:00] LABS: POTASSIUM 4.3 MMOL/L (3.5-5.1)
[2019-06-04] MEDS: K and/or MAG REPLACEMENT MC SCH (08:00)
[2019-06-04] MEDS: apixaban 5mg tablet PO SCH (08:17)
[2019-06-04] MEDS: amox tr/potassium clavulanate 500mg/125mg TAB PO SCH (08:17)
[2019-06-04] MEDS: levoTHYROXINE 25mcg tablet PO SCH (08:17)
[2019-06-04] MEDS: amLODIPine 5mg tablet PO SCH (08:18)
[2019-06-04] MEDS: lisinopril 20mg tablet PO SCH (08:19)
[2019-06-04] MEDS: metoprolol tartrate 50mg tablet PO SCH (08:19)
[2019-06-04] MEDS: furosemide 40mg/4ml inj IV SCH (08:19)
[2019-06-04 11:00] VITALS: BP 133/94
[2019-06-04] MEDS ORDERED: albuterol 2.5 MG/3 ML nebule NEB ONE (13:15)
== END 2019-06-04 16:08 | disposition home or self-care (01) | DRG 194 ==
LOC: ER 08:55 → ED HOLD 13:31 → MED 3N 18:10
PROVIDERS: ADMIT Internal Medicine; ATTEND Internal Medicine
DX: I11.0 Hypertensive heart disease with heart failure (principal); E66.01 Morbid (severe) obesity due to excess calories; I42.9 Cardiomyopathy, unspecified; Z79.01 Long term (current) use of anticoagulants; I50.23 Acute on chronic systolic (congestive) heart failure; I48.20 Chronic atrial fibrillation, unspecified; Z68.43 Body mass index [BMI] 50.0-59.9, adult; E03.9 Hypothyroidism, unspecified; F12.90 Cannabis use, unspecified, uncomplicated; G47.30 Sleep apnea, unspecified; G89.29 Other chronic pain; M54.9 Dorsalgia, unspecified; E78.00 Pure hypercholesterolemia, unspecified; Z79.899 Other long term (current) drug therapy; Z82.49 Family history of ischemic heart disease and other diseases of the circulatory system; Z91.19 Patient's noncompliance with other medical treatment and regimen; Z88.8 Allergy status to other drugs, medicaments and biological substances
CPT/HCPCS: 36415; 71046; 80048; 80053; 83735; 83880; 84443; 84484; 85025; 85610; 87081; 93005; 93306; 94640; 94760; 96374; 99285; G0378; J1650; J1940; J3490

== ENCOUNTER 2019-06-12 13:04 | Inpatient (IN) | payer MEDICAID ==
[~2019-06-12] VITALS: Ht 185.4 cm; Wt 177.1 kg
[~2019-06-12 13:04] MED LIST changes: +ALBU18HF2 IH; +AMLO10TA13 PO; +AMOX1TAB15 PO; -BUPR1FIL5 SL; +DOCU-267 PO; +FURO80TA3 PO; -FURO80TA87 PO; +ONDA4TAB12 PO; +POTA8CAP20 PO; -SPIR25TA5 PO
[2019-06-12 14:07] LABS: BASOPHILS % (AUTO) 0.3 % (0-1); EOSINOPHILS # (AUTO) 0.1 X10'3 (0-0.9); EOSINOPHILS % (AUTO) 0.8 % (0-6); HEMATOCRIT 44.3 % (42.0-52.0); HEMOGLOBIN 14.5 g/dl (14.0-17.9); LYMPHOCYTES # (AUTO) 1.4 X10'3 (1.1-4.8); LYMPHOCYTES % (AUTO) 12.5 % (21-51); MEAN CORPUSCULAR HEMOGLOBIN 27.3 PG (27.0-31.0); MEAN CORPUSCULAR HGB CONC 32.8 g/dL (33.0-36.5); MEAN CORPUSCULAR VOLUME 83.2 FL (78-98); MEAN PLATELET VOLUME 8.2 FL (7.4-10.4); MONOCYTES # (AUTO) 0.8 X10'3 (0-0.9); MONOCYTES % (AUTO) 6.7 % (2-12); NEUTROPHILS # (AUTO) 9.2 X10'3 (1.8-7.7); NEUTROPHILS % (AUTO) 79.7 % (42-75); PLATELET COUNT 280 X10'3 (140-440); RED BLOOD COUNT 5.32 X10'6 (4.70-6.10); RED CELL DISTRIBUTION WIDTH 15.4 % (11.5-14.5); WHITE BLOOD COUNT 11.5 X10'3 (4.5-11.0)
[2019-06-12 14:21] LABS: ALANINE AMINOTRANSFERASE 24 U/L (12-78); ALBUMIN 3.5 G/DL (3.4-5.0); ALBUMIN/GLOBULIN RATIO 0.9 (1.1-1.5); ALKALINE PHOSPHATASE 92 IU/L (46-116); ANION GAP 6 (8-16); ASPARTATE AMINO TRANSFERASE 13 U/L (10-37); BILIRUBIN,TOTAL 0.9 MG/DL (0.1-1.0); BLOOD UREA NITROGEN 19 MG/DL (7-18); BUN/CREATININE RATIO 12.4 (5.4-32.0); CHLORIDE 108 MMOL/L (99-107); CREATININE 1.53 MG/DL (0.60-1.10); GLUCOSE 133 MG/DL (70-104); POTASSIUM 3.9 MMOL/L (3.5-5.1); SODIUM 142 MMOL/L (135-145); TOTAL PROTEIN 7.6 G/DL (6.4-8.2); eGFR 47 ML/MIN
[2019-06-12] MEDS ORDERED: nitroGLYCERIN 0.2mg/hour patch TD ONE (15:25)
[2019-06-12] MEDS ORDERED: furosemide 10 MG/1 ML 10ml inj IV ONE (15:25)
--- NOTE | 2019-06-12 15:42 | NUR ---
Attempted IV access x 2 unsuccessfully, No site trauma. Bandages applied, no complications noted.
[2019-06-12] MEDS ORDERED: morphine 2 MG/ML inj. syringe IV PRN (15:45)
[2019-06-12] MEDS ORDERED: magnesium hydroxide 30ml (MOM) UD suspension PO PRN (15:45)
[2019-06-12] MEDS ORDERED: mag hydrox/Alum hydrox/simeth 30ml oral suspension PO PRN (15:45)
[2019-06-12] MEDS ORDERED: ondansetron/PF 4mg/2ml inj IV PRN (15:45)
[2019-06-12] MEDS ORDERED: acetaminophen 325mg tablet PO PRN ×2 (15:45)
[2019-06-12] MEDS ORDERED: HYDROcodone/acetaminophen 5mg/325mg tablet PO PRN (15:45)
[2019-06-12] MEDS ORDERED: FURO40TA4 PO (15:52)
[2019-06-12] MEDS ORDERED: UMEC1DIS PO (15:58)
[2019-06-12] MEDS: HYDROcodone/acetaminophen 10/325mg tab PO PRN ×2 (16:51→22:51)
[2019-06-12 17:17] VITALS: BP 96/64
--- NOTE | 2019-06-12 18:15 | NUR ---
Patient in room PCU 3018. I have received report from Tiff Taylor RN and had the opportunity to ask questions and assume patient care. Patient is resting, will continue to monitor.
--- NOTE | 2019-06-12 18:16 | NUR ---
Problems reprioritized. Patient report given, questions answered & plan of care reviewed with OLEKSANDR Pierce.
[2019-06-12 19:00] VITALS: BP 147/114
[2019-06-12 23:00] VITALS: BP 129/83
[2019-06-13 02:39] LABS: BASOPHILS # (AUTO) 0.1 X10'3 (0-0.2); BASOPHILS % (AUTO) 1.1 % (0-1); EOSINOPHILS # (AUTO) 0.3 X10'3 (0-0.9); EOSINOPHILS % (AUTO) 2.4 % (0-6); HEMATOCRIT 43.8 % (42.0-52.0); HEMOGLOBIN 14.3 g/dl (14.0-17.9); LYMPHOCYTES # (AUTO) 2.1 X10'3 (1.1-4.8); LYMPHOCYTES % (AUTO) 19.3 % (21-51); MEAN CORPUSCULAR HEMOGLOBIN 26.9 PG (27.0-31.0); MEAN CORPUSCULAR HGB CONC 32.7 g/dL (33.0-36.5); MEAN CORPUSCULAR VOLUME 82.4 FL (78-98); MEAN PLATELET VOLUME 8.2 FL (7.4-10.4); MONOCYTES # (AUTO) 0.8 X10'3 (0-0.9); MONOCYTES % (AUTO) 7.2 % (2-12); NEUTROPHILS # (AUTO) 7.4 X10'3 (1.8-7.7); PLATELET COUNT 261 X10'3 (140-440); RED BLOOD COUNT 5.31 X10'6 (4.70-6.10); RED CELL DISTRIBUTION WIDTH 15.4 % (11.5-14.5); WHITE BLOOD COUNT 10.6 X10'3 (4.5-11.0)
[2019-06-13 02:54] LABS: ALBUMIN 3.4 G/DL (3.4-5.0); ANION GAP 5 (8-16); BLOOD UREA NITROGEN 20 MG/DL (7-18); BUN/CREATININE RATIO 14.2 (5.4-32.0); CALCIUM 9.2 MG/DL (8.5-10.1); CHLORIDE 106 MMOL/L (99-107); CREATININE 1.41 MG/DL (0.60-1.10); GLUCOSE 114 MG/DL (70-104); POTASSIUM 3.6 MMOL/L (3.5-5.1); SODIUM 142 MMOL/L (135-145); TOTAL CARBON DIOXIDE 30.8 MMOL/L (24-32); eGFR 52 ML/MIN
[2019-06-13 03:00] VITALS: BP 140/105
[2019-06-13] MEDS: HYDROcodone/acetaminophen 10/325mg tab PO PRN ×4 (05:54→22:18)
--- NOTE | 2019-06-13 06:05 | NUR ---
Problems reprioritized. Patient report given, questions answered & plan of care reviewed with Rita LEGGETT.
--- NOTE | 2019-06-13 06:31 | NUR ---
Patient in room U 3018A. I have received report from OLEKSANDR Pierce and had the opportunity to ask questions and assume patient care. Patient awake and sitting up at the side of bed, and in no acute distress.
[2019-06-13 07:00] VITALS: BP 132/110
[2019-06-13] MEDS: furosemide 40mg/4ml inj IV SCH ×2 (07:19→21:24)
[2019-06-13] MEDS ORDERED: enoxaparin 40mg/0.4ml syringe SUBCUT SCH (08:00)
[2019-06-13] MEDS ORDERED: docusate sod 100mg capsule PO PRN (09:05)
[2019-06-13] MEDS ORDERED: albuterol 2.5 MG/3 ML nebule NEB PRN (09:05)
[2019-06-13] MEDS: potassium chloride 8mEq ER tablet PO SCH (10:51)
[2019-06-13 11:00] VITALS: BP 137/101
[2019-06-13] MEDS: albuterol 2.5 MG/3 ML nebule NEB SCH ×2 (13:53→19:51)
[2019-06-13 15:00] VITALS: BP 126/78
--- NOTE | 2019-06-13 15:10 | NUR ---
Patient's took home all of patient's home medications that were stored in the medication room. The patient's suboxone prescription is still down in the pharmacy. Patient doesn't want the suboxone anymore, but I informed the patient that he can take it home at discharge.
[2019-06-13 18:00] VITALS: BP 116/73
--- NOTE | 2019-06-13 18:30 | NUR ---
Student documentation: I have reviewed and agree with all interventions, assessments performed and documented by SN Scarlett.
--- NOTE | 2019-06-13 18:37 | NUR ---
Problems reprioritized. Patient report given, questions answered & plan of care reviewed with OLEKSANDR Celeste. Patient stable at transfer of care.
--- NOTE | 2019-06-13 18:39 | NUR ---
Patient in room PCU 3018. I have received report from Rita LEGGETT and had the opportunity to ask questions and assume patient care.
[2019-06-13] MEDS: budesonide 0.5mg/2ml UD nebule IH SCH (19:51)
[2019-06-13] MEDS: metoprolol tartrate 50mg tablet PO SCH (21:23)
[2019-06-13] MEDS: apixaban 5mg tablet PO SCH (21:24)
[2019-06-13 22:00] VITALS: BP 141/87
[2019-06-14] MEDS: morphine 2 MG/ML inj. syringe IV PRN (01:02)
[2019-06-14 02:00] VITALS: BP 125/94
[2019-06-14] MEDS: albuterol 2.5 MG/3 ML nebule NEB SCH ×4 (03:36→20:59)
--- NOTE | 2019-06-14 06:20 | NUR ---
Problems reprioritized. Patient report given, questions answered & plan of care reviewed with Rita LEGGETT.
[2019-06-14] MEDS: HYDROcodone/acetaminophen 10/325mg tab PO PRN ×4 (06:22→20:33)
[2019-06-14 06:30] LABS: BASOPHILS # (AUTO) 0.1 X10'3 (0-0.2); EOSINOPHILS # (AUTO) 0.2 X10'3 (0-0.9); HEMATOCRIT 39.8 % (42.0-52.0); HEMOGLOBIN 13.2 g/dl (14.0-17.9); LYMPHOCYTES # (AUTO) 1.7 X10'3 (1.1-4.8); LYMPHOCYTES % (AUTO) 18.9 % (21-51); MEAN CORPUSCULAR HEMOGLOBIN 27.6 PG (27.0-31.0); MEAN CORPUSCULAR HGB CONC 33.2 g/dL (33.0-36.5); MEAN CORPUSCULAR VOLUME 83.2 FL (78-98); MEAN PLATELET VOLUME 8.4 FL (7.4-10.4); MONOCYTES # (AUTO) 0.7 X10'3 (0-0.9); MONOCYTES % (AUTO) 7.7 % (2-12); NEUTROPHILS # (AUTO) 6.2 X10'3 (1.8-7.7); NEUTROPHILS % (AUTO) 70.4 % (42-75); PLATELET COUNT 224 X10'3 (140-440); RED BLOOD COUNT 4.79 X10'6 (4.70-6.10); RED CELL DISTRIBUTION WIDTH 15.5 % (11.5-14.5); WHITE BLOOD COUNT 8.9 X10'3 (4.5-11.0)
--- NOTE | 2019-06-14 06:31 | NUR ---
Patient in room U 3018. I have received report from OLEKSANDR Celeste and had the opportunity to ask questions and assume patient care. Patient awake in bed and asking for pain medication. In no acute distress.
[2019-06-14 06:32] LABS: ALBUMIN 3.2 G/DL (3.4-5.0); ANION GAP 10 (8-16); BLOOD UREA NITROGEN 19 MG/DL (7-18); BUN/CREATININE RATIO 14.6 (5.4-32.0); CALCIUM 8.8 MG/DL (8.5-10.1); CHLORIDE 106 MMOL/L (99-107); GLUCOSE 128 MG/DL (70-104); POTASSIUM 3.3 MMOL/L (3.5-5.1); SODIUM 141 MMOL/L (135-145); TOTAL CARBON DIOXIDE 25.1 MMOL/L (24-32); eGFR 57 ML/MIN
[2019-06-14 07:00] VITALS: BP 131/98
[2019-06-14] MEDS: potassium chloride 8mEq ER tablet PO SCH (07:15)
[2019-06-14] MEDS: apixaban 5mg tablet PO SCH ×2 (07:15→20:18)
[2019-06-14] MEDS: metoprolol tartrate 50mg tablet PO SCH ×2 (07:15→20:17)
[2019-06-14] MEDS: lisinopril 20mg tablet PO SCH (07:15)
[2019-06-14] MEDS: furosemide 40mg/4ml inj IV SCH ×3 (07:16→20:17)
[2019-06-14] MEDS: levoTHYROXINE 25mcg tablet PO SCH (07:16)
[2019-06-14] MEDS: budesonide 0.5mg/2ml UD nebule IH SCH ×2 (07:28→20:59)
--- NOTE | 2019-06-14 08:18 | NUR ---
Orders to change Lasix TID put in per Dr. Rodas.
[2019-06-14 11:00] VITALS: BP 123/83
[2019-06-14] MEDS ORDERED: potassium Cl 20 mEq SR tablet PO PRN (11:00)
[2019-06-14] MEDS ORDERED: potassium CL 10mEq/100ml bag 100 ML IV PRN (11:00)
[2019-06-14] MEDS: potassium Cl 20 mEq SR tablet PO PRN ×3 (11:09→20:34)
[2019-06-14 15:00] VITALS: BP 109/82
--- NOTE | 2019-06-14 18:26 | NUR ---
Problems reprioritized. Patient report given, questions answered & plan of care reviewed with OLEKSANDR Loyd. Patient stable at transfer of care.
--- NOTE | 2019-06-14 18:30 | NUR ---
Patient in room PCU 3028. I have received report from Rita LEGGETT and had the opportunity to ask questions and assume patient care.
[2019-06-14 19:00] VITALS: BP 113/56
--- NOTE | 2019-06-14 22:57 | NUR ---
Called Dr. flores per pt HTN, 160s - 170s systolic. Reviewed patient medications and doctor ordered Norvasc 2.5mg once. Will admin and continue to monitor.
[2019-06-14 23:00] VITALS: BP 129/63
[2019-06-15] MEDS: morphine 2 MG/ML inj. syringe IV PRN (00:16)
[2019-06-15] MEDS: albuterol 2.5 MG/3 ML nebule NEB SCH ×2 (02:19→09:53)
[2019-06-15 03:00] VITALS: BP 132/92
[2019-06-15 05:18] LABS: BASOPHILS # (AUTO) 0.1 X10'3 (0-0.2); BASOPHILS % (AUTO) 1.2 % (0-1); EOSINOPHILS # (AUTO) 0.3 X10'3 (0-0.9); EOSINOPHILS % (AUTO) 2.6 % (0-6); HEMOGLOBIN 13.3 g/dl (14.0-17.9); LYMPHOCYTES # (AUTO) 2.2 X10'3 (1.1-4.8); LYMPHOCYTES % (AUTO) 22.4 % (21-51); MEAN CORPUSCULAR HEMOGLOBIN 27.1 PG (27.0-31.0); MEAN CORPUSCULAR HGB CONC 32.5 g/dL (33.0-36.5); MEAN CORPUSCULAR VOLUME 83.5 FL (78-98); MEAN PLATELET VOLUME 8.6 FL (7.4-10.4); MONOCYTES # (AUTO) 0.9 X10'3 (0-0.9); MONOCYTES % (AUTO) 9.1 % (2-12); NEUTROPHILS # (AUTO) 6.2 X10'3 (1.8-7.7); NEUTROPHILS % (AUTO) 64.7 % (42-75); PLATELET COUNT 225 X10'3 (140-440); RED BLOOD COUNT 4.92 X10'6 (4.70-6.10); RED CELL DISTRIBUTION WIDTH 15.8 % (11.5-14.5); WHITE BLOOD COUNT 9.7 X10'3 (4.5-11.0)
[2019-06-15 05:34] LABS: ALBUMIN 3.2 G/DL (3.4-5.0); ANION GAP 11 (8-16); BLOOD UREA NITROGEN 21 MG/DL (7-18); BUN/CREATININE RATIO 15.8 (5.4-32.0); CALCIUM 9.1 MG/DL (8.5-10.1); CHLORIDE 106 MMOL/L (99-107); CREATININE 1.33 MG/DL (0.60-1.10); GLUCOSE 112 MG/DL (70-104); POTASSIUM 3.5 MMOL/L (3.5-5.1); SODIUM 144 MMOL/L (135-145); eGFR 56 ML/MIN
--- NOTE | 2019-06-15 06:12 | NUR ---
Problems reprioritized. Patient report given, questions answered & plan of care reviewed with Maura LEGGETT
--- NOTE | 2019-06-15 06:29 | NUR ---
Patient in room PCU 3028. I have received report from Evert LEGGETT and had the opportunity to ask questions and assume patient care.
[2019-06-15 07:00] VITALS: BP 146/112
[2019-06-15] MEDS: levoTHYROXINE 25mcg tablet PO SCH (07:31)
[2019-06-15 07:32] VITALS: BP_SYST 143
[2019-06-15] MEDS: furosemide 40mg/4ml inj IV SCH (07:32)
[2019-06-15] MEDS: HYDROcodone/acetaminophen 10/325mg tab PO PRN (07:32)
[2019-06-15] MEDS: metoprolol tartrate 50mg tablet PO SCH (07:32)
[2019-06-15] MEDS: apixaban 5mg tablet PO SCH (07:32)
[2019-06-15] MEDS: potassium chloride 8mEq ER tablet PO SCH (07:32)
[2019-06-15] MEDS: lisinopril 20mg tablet PO SCH (07:32)
[2019-06-15] MEDS: budesonide 0.5mg/2ml UD nebule IH SCH (09:53)
--- NOTE | 2019-06-15 10:43 | NUR ---
Patient stable for discharge per MD order. All discharge information and education reviewed with patient before signing necessary paperwork. Patient declined F/U CHF appointment since he will be traveling out of the area. IV discontinued with catheter in tact, telemetry removed and returned, all patient belongings packed up and sent with patient. Patient wheeled down to lobby, left in private vehicle with family member.
== END 2019-06-15 10:52 | disposition home or self-care (01) | DRG 194 ==
LOC: ER 13:04 → ED HOLD 15:45 → PCU 3S 17:04
PROVIDERS: ADMIT Internal Medicine; ATTEND Internal Medicine
DX: I11.0 Hypertensive heart disease with heart failure (principal); N17.9 Acute kidney failure, unspecified; I27.81 Cor pulmonale (chronic); E66.01 Morbid (severe) obesity due to excess calories; Z68.43 Body mass index [BMI] 50.0-59.9, adult; Z79.01 Long term (current) use of anticoagulants; E03.9 Hypothyroidism, unspecified; I50.23 Acute on chronic systolic (congestive) heart failure; I48.0 Paroxysmal atrial fibrillation; F12.90 Cannabis use, unspecified, uncomplicated; E78.00 Pure hypercholesterolemia, unspecified; R09.02 Hypoxemia; Z82.49 Family history of ischemic heart disease and other diseases of the circulatory system; Z87.891 Personal history of nicotine dependence; Z79.899 Other long term (current) drug therapy; Z88.8 Allergy status to other drugs, medicaments and biological substances
CPT/HCPCS: 36415; 71045; 80048; 80053; 83880; 84484; 85025; 87081; 93005; 94640; 94760; 99285; G0378; J1650; J1940; J2270; J7626

== ENCOUNTER 2019-10-19 09:35 | Day surgery (SDC) | payer MEDICAID ==
[~2019-10-19] VITALS: Ht 185.4 cm; Wt 11.5 kg
[2019-10-19] VITALS (19 sets, daily range): BP systolic 97–162; BP diastolic 49–95
[~2019-10-19 09:35] MED LIST changes: -AMLO10TA13 PO; -AMOX1TAB15 PO; +FURO40TA4 PO; -FURO80TA3 PO; +UMEC1DIS PO
[2019-10-19] MEDS ORDERED: fentaNYL/PF 50MCG/1 ML 2ML syringe IV ONE (10:00)
[2019-10-19] MEDS ORDERED: normal saline 1000ml 1,000 ML IV SCH (10:00)
[2019-10-19] MEDS ORDERED: MIDAZolam 1mg/ml 10ml vial IV ONE (10:00)
[2019-10-19] MEDS ORDERED: AMIO200T62 PO (10:37)
[2019-10-19] MEDS ORDERED: AMLO5TAB PO (10:37)
[2019-10-19] MEDS ORDERED: HCTZ25T PO (10:37)
[2019-10-19] MEDS ORDERED: ADV50100 IH (10:37)
[2019-10-19] MEDS ORDERED: CARV12.5 PO (10:37)
[2019-10-19] MEDS ORDERED: HYDR-4383 PO (10:37)
[2019-10-19] MEDS ORDERED: FURO40TA4 PO (10:37)
[2019-10-19] MEDS ORDERED: SPIR25TA PO (10:37)
[2019-10-19] MEDS ORDERED: TORS100T15 PO (10:37)
[2019-10-19] MEDS ORDERED: FERR325T28 PO (10:37)
[2019-10-19 10:44] LABS: BASOPHILS # (AUTO) 0.1 X10'3 (0-0.2); EOSINOPHILS # (AUTO) 0.2 X10'3 (0-0.9); EOSINOPHILS % (AUTO) 2.2 % (0-6); HEMATOCRIT 48.7 % (42.0-52.0); HEMOGLOBIN 16.3 g/dl (14.0-17.9); LYMPHOCYTES # (AUTO) 2.7 X10'3 (1.1-4.8); LYMPHOCYTES % (AUTO) 31.8 % (21-51); MEAN CORPUSCULAR HEMOGLOBIN 27.4 PG (27.0-31.0); MEAN CORPUSCULAR HGB CONC 33.4 g/dL (33.0-36.5); MEAN CORPUSCULAR VOLUME 82.1 FL (78-98); MEAN PLATELET VOLUME 7.8 FL (7.4-10.4); MONOCYTES # (AUTO) 0.8 X10'3 (0-0.9); MONOCYTES % (AUTO) 8.9 % (2-12); NEUTROPHILS # (AUTO) 4.8 X10'3 (1.8-7.7); NEUTROPHILS % (AUTO) 56.1 % (42-75); PLATELET COUNT 248 X10'3 (140-440); RED BLOOD COUNT 5.93 X10'6 (4.70-6.10); RED CELL DISTRIBUTION WIDTH 17.8 % (11.5-14.5); WHITE BLOOD COUNT 8.5 X10'3 (4.5-11.0)
[2019-10-19 10:53] LABS: ALBUMIN 3.6 G/DL (3.4-5.0); ANION GAP 10 (8-16); BLOOD UREA NITROGEN 47 MG/DL (7-18); BUN/CREATININE RATIO 23.9 (5.4-32.0); CALCIUM 9.1 MG/DL (8.5-10.1); CHLORIDE 103 MMOL/L (99-107); CREATININE 1.97 MG/DL (0.60-1.10); GLUCOSE 118 MG/DL (70-104); MAGNESIUM 1.8 MG/DL (1.5-2.4); POTASSIUM 3.9 MMOL/L (3.5-5.1); SODIUM 138 MMOL/L (135-145); TOTAL CARBON DIOXIDE 25.4 MMOL/L (24-32); eGFR 35 ML/MIN
--- NOTE | 2019-10-19 12:45 | NUR ---
Initial cardioversion unsuccessful, Dr. Bai requested an additional defibrillator to administer additional joules beyond capacity of this unit's defibrillator. nursing program director contacted to verify feasibility of request. nursing program director contacted DON & received permission to provide MD with additional defibrillator.
== END 2019-10-19 15:00 | disposition home or self-care (01) ==
LOC: SSTAY O 09:35 → EEVIPCON 11:00 → SSTAY O 15:00
PROVIDERS: ATTEND Internal Medicine Cardiovascular Disease
DX: I48.19 Other persistent atrial fibrillation (principal)
CPT/HCPCS: 36415; 80048; 83735; 85025; 85610; 92960; 93005; J2250; J3010; J7030